=== PATIENT | male | born 1970 | race Caucasian/White ===

== ENCOUNTER 2017-08-25 09:18 | Emergency (ER) | payer OTHER ==
[~2017-08-25] VITALS: Ht 172.7 cm; Wt 76.0 kg
[~2017-08-25 09:18] MED LIST: AMOXICILLIN875 MG PO; ATORVASTATIN CA40 MG PO; BUPROPION HCL75 MG PO; CEPHALEXIN500 MG PO; DESYREL100 MG PO; LISINOPRIL2.5 MG PO; LORATADINE10 M2 PO; METFORMIN HCL1000 MG PO; MOTRIN600 MG PO; NAPROSYN500 MG PO; NOHOMEMEDS; PAROXETINE HCL20 MG PO; TRAMADOL HCL50 MG PO
[2017-08-25 09:26] VITALS: BP 107/67
[2017-08-25] MEDS ORDERED: BACTRIM,SEPT1 TABLET PO (12:38)
[2017-08-25] MEDS ORDERED: NORCO 5/3251 TABLET PO (12:38)
== END 2017-08-25 13:14 | disposition home or self-care (01) ==
LOC: EME 09:18 → EXP 09:18
PROC: 0H94XZZ Drainage of Neck Skin, External Approach (ICD-10-PCS; principal; 2017-08-25)
DX: L72.3 Sebaceous cyst (principal); L08.9 Local infection of the skin and subcutaneous tissue, unspecified; E11.9 Type 2 diabetes mellitus without complications
CPT/HCPCS: 76536; 87070; 87075; 87076; 87205

== ENCOUNTER 2017-08-27 13:37 | Emergency (ER) | payer OTHER ==
[~2017-08-27] VITALS: Ht 172.7 cm; Wt 76.5 kg
[~2017-08-27 13:37] MED LIST changes: +BACTRIM,SEPT1 TABLET PO; +NORCO 5/3251 TABLET PO
[2017-08-27 16:00] VITALS: BP 116/70
== END 2017-08-27 16:00 | disposition home or self-care (01) ==
LOC: EME 13:37
DX: Z48.00 Encounter for change or removal of nonsurgical wound dressing (principal); E11.9 Type 2 diabetes mellitus without complications; E78.5 Hyperlipidemia, unspecified; F32.9 Major depressive disorder, single episode, unspecified; Z79.84 Long term (current) use of oral hypoglycemic drugs
CPT/HCPCS: 99281; 99284

== ENCOUNTER 2017-10-25 12:42 | Emergency (ER) | payer OTHER ==
[~2017-10-25] VITALS: Ht 172.7 cm; Wt 77.5 kg
[2017-10-25 14:51] VITALS: BP 118/81
== END 2017-10-25 14:51 | disposition home or self-care (01) ==
LOC: EME 12:42
DX: S60.451A Superficial foreign body of left index finger, initial encounter (principal); W45.8XXA Other foreign body or object entering through skin, initial encounter; W22.8XXA Striking against or struck by other objects, initial encounter; E11.9 Type 2 diabetes mellitus without complications; Z79.84 Long term (current) use of oral hypoglycemic drugs
CPT/HCPCS: 99281; 99284